=== PATIENT | male | born 1965 | race Caucasian/White ===

== ENCOUNTER 2022-10-30 11:07 | Emergency (ER) | payer OTHER, BC ==
[2022-10-30] MEDS ORDERED: Acetaminophen/HYDROcodone 325-10 MG Tab PO ONE (12:33)
== END 2022-10-30 13:40 | disposition home or self-care (01) ==
LOC: MERGE 11:07 → DL.ED 11:07
DX: S82.832A Other fracture of upper and lower end of left fibula, initial encounter for closed fracture (principal); I10 Essential (primary) hypertension; E66.9 Obesity, unspecified; Z68.37 Body mass index [BMI] 37.0-37.9, adult; Z79.899 Other long term (current) drug therapy; Y99.0 Civilian activity done for income or pay
CPT/HCPCS: 29515; 73590; 73610; 99283; A9270